=== PATIENT | female | born 1965 | race African-American/Black ===

== ENCOUNTER 2021-07-06 08:49 | Emergency (ER) | payer OTHER ==
[~2021-07-06] VITALS: Ht 170.2 cm; Wt 90.7 kg
[2021-07-06 09:12] VITALS: BP 144/75
[2021-07-06] MEDS ORDERED: LIDOCAINE 1% INJ 50 ML MDV IJ ONE ×2 (09:26→10:00)
--- NOTE | 2021-07-06 09:53 | NUR ---
AT BEDSIDE FOR SUTURING.
[2021-07-06] MEDS ORDERED: CEPH500C2 PO (10:49)
[2021-07-06] MEDS ORDERED: CEPHALEXIN MONOHYDRATE 500 MG CAPSULE PO ONE ×2 (10:54→11:00)
[2021-07-06] MEDS ORDERED: TDAP [DIPH/PERTUSSIS/TET] 0.5 ML VIAL IM ONE ×2 (10:54→11:00)
--- NOTE | 2021-07-06 11:03 | NUR ---
DANIS JIN AT BEDSIDE FOR WOUND DRESSING.
--- NOTE | 2021-07-06 12:25 | NUR ---
Patient discharged to home in stable condition. Written and verbal after care instructions given. Patient verbalizes understanding of instruction.
== END 2021-07-06 12:25 | disposition home or self-care (01) ==
LOC: ER 08:58
DX: S91.114A Laceration without foreign body of right lesser toe(s) without damage to nail, initial encounter (principal); K21.9 Gastro-esophageal reflux disease without esophagitis; Z91.048 Other nonmedicinal substance allergy status; Z60.2 Problems related to living alone; W22.8XXA Striking against or struck by other objects, initial encounter; Y93.89 Activity, other specified; Y92.89 Other specified places as the place of occurrence of the external cause; Y99.8 Other external cause status
CPT/HCPCS: 12002; 90471; 90715; 99283; A6403; J3490

== ENCOUNTER 2021-07-13 00:02 | Emergency (ER) | payer OTHER ==
[~2021-07-13] VITALS: Ht 170.2 cm; Wt 90.7 kg
[~2021-07-13 00:02] MED LIST: CEPH500C2 PO
[2021-07-13 00:12] VITALS: BP 121/66
--- NOTE | 2021-07-13 00:15 | NUR ---
PT BIBSELF FOR CHECK UP ON 2ND/3RD TOE LACERATION/WOUND. PT AAOX4. VSS. CONT TO MONITOR.
--- NOTE | 2021-07-13 00:40 | NUR ---
Patient discharged to home in stable condition. Written and verbal after care instructions given. Patient verbalizes understanding of instruction.
== END 2021-07-13 00:32 | disposition home or self-care (01) ==
LOC: ER 00:02
DX: S91.114D Laceration without foreign body of right lesser toe(s) without damage to nail, subsequent encounter (principal); K21.9 Gastro-esophageal reflux disease without esophagitis; Z91.048 Other nonmedicinal substance allergy status; Z60.2 Problems related to living alone; X58.XXXD Exposure to other specified factors, subsequent encounter

== ENCOUNTER 2021-07-16 19:30 | Emergency (ER) | payer OTHER ==
[~2021-07-16] VITALS: Ht 170.2 cm; Wt 93.0 kg
--- NOTE | 2021-07-16 20:54 | NUR ---
CALLED FOR TRIAGE, NO ANSWER
[2021-07-16 21:17] VITALS: BP 150/93
--- NOTE | 2021-07-16 21:25 | NUR ---
PT BIBS FOR SUTURE REMOVAL ON TOE. PT IS ALERT AND ORIENTED X4. AMBULATORY WITH NON LABORED BREATHING.
--- NOTE | 2021-07-16 21:44 | NUR ---
Note shilpa in ED - 07/16/21 at 2145 by ALEXANDRO PT BIBS FOR SUTURE REMOVAL ON TOE. PT IS ALERT AND ORIENTED X4. AMBULATORY WITH NON LABORED BREATHIMNG.
--- NOTE | 2021-07-16 21:44 | NUR ---
AT BEDSIDE FOR SUTURE REMOVAL
--- NOTE | 2021-07-16 21:53 | NUR ---
Patient discharged to home in stable condition. Written and verbal after care instructions given. Patient verbalizes understanding of instruction.
== END 2021-07-16 22:06 | disposition home or self-care (01) ==
LOC: ER 19:30
DX: S91.114D Laceration without foreign body of right lesser toe(s) without damage to nail, subsequent encounter (principal); K21.9 Gastro-esophageal reflux disease without esophagitis; Z91.011 Allergy to milk products; Z60.2 Problems related to living alone; Z79.899 Other long term (current) drug therapy; X58.XXXD Exposure to other specified factors, subsequent encounter